=== PATIENT | female | born 1950 | race Caucasian/White ===

== ENCOUNTER → 2017-06-10 | Outpatient (CLI) | payer MEDICARE, OTHER ==
[~2017-06-10] MED LIST: BENEFIBER)(NUTR1 PKT PO; CLARITIN10 MG PO; FISH OIL1000 MG PO; PRILOSEC OTC20 MG PO; ZYRTEC10 MG PO
== END | disposition disaster alternative care site (69) ==
LOC: GRAD 05-19 13:00
DX: D17.22 Benign lipomatous neoplasm of skin and subcutaneous tissue of left arm (principal)